=== PATIENT | female | born 1965 | race Caucasian/White ===

== ENCOUNTER 2023-11-04 00:40 | Outpatient (RCR) | payer MEDICAID, SELFPAY ==
[2023-10-21] MEDS: Heparin 500 UNITS/5 ML SYRINGE IV (11:46)
[2023-10-21] MEDS: Normal Saline Flush 10 ML SYR IVP (11:46)
[2023-10-21 12:16] LABS: Abs Immature Grans 0.02 10^3/uL (0.0-0.06); Absolute Basophil Count 0.04 10^3/uL (0.0-0.2); Absolute Eosinophil Count 0.07 10^3/uL (0.0-0.7); Absolute Monocyte Count 0.32 10^3/uL (0.1-0.8); Absolute Neutrophil Count 4.69 10^3/uL (1.2-6.7); Basophils % 0.7; Eosinophils % 1.2; HCT 34.5 % (36.0-46.0); HGB 11.2 g/dL (11.2-15.7); Immature Grans % 0.3; Lymphocytes % 13.5; MCH 29.2 pg (27.0-33.0); MCHC 32.5 % (32.0-36.0); MCV 90 fL (80-95); MPV 10.5 fL (8.0-11.0); Monocytes % 5.4; Neutrophils % 78.9; Platelet Count 193 10^3/uL (130-400); RBC 3.83 10^6/uL (3.93-5.22); RDW 12.3 % (11.7-14.6); RDW-SD 40.1 fL; WBC 5.94 10^3/uL (4.4-10.8)
[2023-10-21 12:31] LABS: ALT 27 U/L (14-59); AST 17 U/L (15-37); Albumin 3.3 g/dL (3.4-5.0); Alkaline Phosphatase 72 U/L (46-116); Anion Gap 7.6 mmol/L (3-11); BUN 21 mg/dL (7-18); Bilirubin, Total 0.5 mg/dL (0.2-1.0); CO2 26.4 mmol/L (21.0-32.0); CREATININE 1.1 mg/dL (0.55-1.02); Calcium 8.2 mg/dL (8.5-10.1); Chloride 103 mmol/L (98-107); Estimated GFR 57.52 (mL/min/1.73m2); Glucose 199 mg/dL (74-106); Potassium 4.2 mmol/L (3.5-5.1); Sodium 137 mmol/L (136-145)
[2023-10-28] MEDS: Normal Saline Flush 10 ML SYR IVP (11:59)
[2023-10-28] MEDS: Heparin 500 UNITS/5 ML SYRINGE IV (11:59)
[2023-10-28 12:02] LABS: Abs Immature Grans 0.02 10^3/uL (0.0-0.06); Absolute Basophil Count 0.02 10^3/uL (0.0-0.2); Absolute Eosinophil Count 0.06 10^3/uL (0.0-0.7); Absolute Lymphocyte Count 0.37 10^3/uL (1.2-3.4); Absolute Neutrophil Count 2.12 10^3/uL (1.2-6.7); Basophils % 0.7; Eosinophils % 2.2; HCT 30.7 % (36.0-46.0); HGB 10.1 g/dL (11.2-15.7); Immature Grans % 0.7; Lymphocytes % 13.3; MCH 29.3 pg (27.0-33.0); MCHC 32.9 % (32.0-36.0); MCV 89 fL (80-95); MPV 9.6 fL (8.0-11.0); Monocytes % 7.2; Neutrophils % 75.9; Platelet Count 140 10^3/uL (130-400); RBC 3.45 10^6/uL (3.93-5.22); RDW 11.9 % (11.7-14.6); RDW-SD 37.7 fL; WBC 2.79 10^3/uL (4.4-10.8)
[2023-10-28 12:16] LABS: ALT 19 U/L (14-59); AST 12 U/L (15-37); Albumin 3.1 g/dL (3.4-5.0); Alkaline Phosphatase 69 U/L (46-116); Anion Gap 7.4 mmol/L (3-11); BUN 13 mg/dL (7-18); Bilirubin, Total 0.4 mg/dL (0.2-1.0); CO2 27.6 mmol/L (21.0-32.0); CREATININE 0.8 mg/dL (0.55-1.02); Calcium 8.1 mg/dL (8.5-10.1); Chloride 104 mmol/L (98-107); Glucose 185 mg/dL (74-106); Potassium 3.9 mmol/L (3.5-5.1); Sodium 139 mmol/L (136-145); Total Protein 6.6 g/dL (6.4-8.2)
[2023-11-04] MEDS: Heparin 500 UNITS/5 ML SYRINGE IV (11:37)
[2023-11-04] MEDS: Normal Saline Flush 10 ML SYR IVP (11:37)
[2023-11-04 11:44] LABS: Abs Immature Grans 0.01 10^3/uL (0.0-0.06); Absolute Basophil Count 0.01 10^3/uL (0.0-0.2); Absolute Eosinophil Count 0.07 10^3/uL (0.0-0.7); Absolute Lymphocyte Count 0.24 10^3/uL (1.2-3.4); Absolute Monocyte Count 0.33 10^3/uL (0.1-0.8); Absolute Neutrophil Count 1.56 10^3/uL (1.2-6.7); Basophils % 0.5; Eosinophils % 3.2; HCT 31.5 % (36.0-46.0); HGB 10.6 g/dL (11.2-15.7); Immature Grans % 0.5; Lymphocytes % 10.8; MCH 30.2 pg (27.0-33.0); MCHC 33.7 % (32.0-36.0); MCV 90 fL (80-95); MPV 9.5 fL (8.0-11.0); Monocytes % 14.9; Neutrophils % 70.1; RBC 3.51 10^6/uL (3.93-5.22); RDW 12.5 % (11.7-14.6); RDW-SD 37.4 fL; WBC 2.22 10^3/uL (4.4-10.8)
[2023-11-04 11:49] LABS: ALT 21 U/L (14-59); AST 14 U/L (15-37); Albumin 3.2 g/dL (3.4-5.0); Alkaline Phosphatase 83 U/L (46-116); Anion Gap 8.9 mmol/L (3-11); BUN 20 mg/dL (7-18); Bilirubin, Total 0.4 mg/dL (0.2-1.0); CO2 28.1 mmol/L (21.0-32.0); CREATININE 1.1 mg/dL (0.55-1.02); Calcium 8.4 mg/dL (8.5-10.1); Chloride 101 mmol/L (98-107); Estimated GFR 57.52 (mL/min/1.73m2); Glucose 282 mg/dL (74-106); Potassium 3.7 mmol/L (3.5-5.1); Sodium 138 mmol/L (136-145); Total Protein 6.9 g/dL (6.4-8.2)
[2023-11-04 12:15] LABS: Platelet Count 98 10^3/uL (130-400)
== END 2023-11-07 23:59 | disposition home or self-care (01) ==
LOC: INF 00:40
PROVIDERS: PCP Family Medicine; Visit Provider Internal Medicine Hematology & Oncology
DX: C21.0 Malignant neoplasm of anus, unspecified (principal); Z45.2 Encounter for adjustment and management of vascular access device
CPT/HCPCS: 36591; 80053; 85025

== ENCOUNTER → 2023-11-19 12:57 | Outpatient (CLI) | payer MEDICAID, SELFPAY ==
--- NOTE | 2023-11-19 | DI.US_ITS ---
Exam(s) US EXTREMITY VENOUS BI EXAM: US EXTREMITY VENOUS BI CLINICAL HISTORY: Bilateral lower extremity edema, undergoing treatment for anal ca. TECHNIQUE: Bilateral lower extremity venous ultrasound performed using grayscale, color-flow, and sp ectral Doppler analysis. COMPARISON: No exams were available for comparison FINDINGS: The right common femoral, femoral and popliteal veins demonstrate normal compressibility, augmentatio n, and color Doppler. The posterior tibial veins are patent. The saphenofemoral junction is unremark able. There is no evidence of a Elizabeth's cyst. The soft tissues are unremarkable. The left common femoral, femoral and popliteal veins demonstrate normal compressibility, augmentation , and color Doppler. The posterior tibial and peroneal veins are patent. The saphenofemoral junction is unremarkable. There is no evidence of a Elizabeth's cyst. The soft tissues are unremarkable. IMPRESSION: 1. No evidence of a right lower extremity DVT. 2. No evidence of a left lower extremity DVT. DATA REPOSITORY:
== END ==
PROVIDERS: PCP Family Medicine; Visit Provider Internal Medicine Hematology & Oncology
DX: C21.0 Malignant neoplasm of anus, unspecified (principal); R22.43 Localized swelling, mass and lump, lower limb, bilateral
CPT/HCPCS: 93970

== ENCOUNTER 2023-12-03 01:12 | Outpatient (RCR) | payer MEDICAID, SELFPAY ==
[2023-11-11] MEDS: Normal Saline Flush 10 ML SYR IVP (11:41)
[2023-11-11] MEDS: Heparin 500 UNITS/5 ML SYRINGE IV (11:43)
[2023-11-11 12:14] LABS: Abs Immature Grans 0.03 10^3/uL (0.0-0.06); Absolute Basophil Count 0.04 10^3/uL (0.0-0.2); Absolute Eosinophil Count 0.06 10^3/uL (0.0-0.7); Absolute Lymphocyte Count 0.25 10^3/uL (1.2-3.4); Absolute Monocyte Count 0.41 10^3/uL (0.1-0.8); Absolute Neutrophil Count 3.03 10^3/uL (1.2-6.7); Eosinophils % 1.6; HCT 30.4 % (36.0-46.0); HGB 10.1 g/dL (11.2-15.7); Immature Grans % 0.8; Lymphocytes % 6.5; MCH 30.2 pg (27.0-33.0); MCHC 33.2 % (32.0-36.0); MCV 91 fL (80-95); MPV 10.1 fL (8.0-11.0); Monocytes % 10.7; Neutrophils % 79.4; Platelet Count 111 10^3/uL (130-400); RBC 3.34 10^6/uL (3.93-5.22); RDW 13.8 % (11.7-14.6); RDW-SD 38.8 fL; WBC 3.82 10^3/uL (4.4-10.8)
[2023-11-11 12:37] LABS: ALT 22 U/L (14-59); AST 15 U/L (15-37); Albumin 3.2 g/dL (3.4-5.0); Alkaline Phosphatase 76 U/L (46-116); Anion Gap 8.6 mmol/L (3-11); BUN 20 mg/dL (7-18); Bilirubin, Total 0.4 mg/dL (0.2-1.0); CO2 28.4 mmol/L (21.0-32.0); CREATININE 1.2 mg/dL (0.55-1.02); Calcium 8.3 mg/dL (8.5-10.1); Chloride 102 mmol/L (98-107); Estimated GFR 51.82 (mL/min/1.73m2); Glucose 162 mg/dL (74-106); Potassium 3.7 mmol/L (3.5-5.1); Sodium 139 mmol/L (136-145); Total Protein 6.8 g/dL (6.4-8.2)
[2023-11-18] MEDS: Normal Saline Flush 10 ML SYR IVP (11:56)
[2023-11-18 12:03] LABS: Abs Immature Grans 0.01 10^3/uL (0.0-0.06); Absolute Basophil Count 0.03 10^3/uL (0.0-0.2); Absolute Eosinophil Count 0.15 10^3/uL (0.0-0.7); Absolute Lymphocyte Count 0.23 10^3/uL (1.2-3.4); Absolute Monocyte Count 0.37 10^3/uL (0.1-0.8); Absolute Neutrophil Count 3.88 10^3/uL (1.2-6.7); Basophils % 0.6; Eosinophils % 3.2; HCT 28.8 % (36.0-46.0); HGB 9.8 g/dL (11.2-15.7); Immature Grans % 0.2; Lymphocytes % 4.9; MCV 91 fL (80-95); MPV 9.1 fL (8.0-11.0); Monocytes % 7.9; Neutrophils % 83.2; Platelet Count 113 10^3/uL (130-400); RBC 3.16 10^6/uL (3.93-5.22); RDW 14.8 % (11.7-14.6); RDW-SD 39.8 fL; WBC 4.67 10^3/uL (4.4-10.8)
[2023-11-18 12:19] LABS: ALT 23 U/L (14-59); AST 18 U/L (15-37); Albumin 3.2 g/dL (3.4-5.0); Alkaline Phosphatase 63 U/L (46-116); Anion Gap 7.1 mmol/L (3-11); BUN 13 mg/dL (7-18); Bilirubin, Total 0.5 mg/dL (0.2-1.0); CO2 27.9 mmol/L (21.0-32.0); Calcium 8.5 mg/dL (8.5-10.1); Chloride 104 mmol/L (98-107); Estimated GFR 64.49 (mL/min/1.73m2); Glucose 160 mg/dL (74-106); Potassium 3.7 mmol/L (3.5-5.1); Sodium 139 mmol/L (136-145); Total Protein 6.7 g/dL (6.4-8.2)
[2023-11-25] MEDS: Normal Saline Flush 10 ML SYR IVP (12:29)
[2023-11-25 13:00] LABS: Abs Immature Grans 0.02 10^3/uL (0.0-0.06); Absolute Basophil Count 0.02 10^3/uL (0.0-0.2); Absolute Lymphocyte Count 0.15 10^3/uL (1.2-3.4); Absolute Monocyte Count 0.26 10^3/uL (0.1-0.8); Absolute Neutrophil Count 2.54 10^3/uL (1.2-6.7); Basophils % 0.6; Eosinophils % 3.2; HCT 25.8 % (36.0-46.0); Immature Grans % 0.6; Lymphocytes % 4.9; MCH 32.1 pg (27.0-33.0); MCHC 34.9 % (32.0-36.0); MCV 92 fL (80-95); MPV 9.2 fL (8.0-11.0); Monocytes % 8.4; Neutrophils % 82.3; Platelet Count 103 10^3/uL (130-400); RDW 15.8 % (11.7-14.6); RDW-SD 46.1 fL; WBC 3.09 10^3/uL (4.4-10.8)
[2023-11-25 13:13] LABS: ALT 24 U/L (14-59); AST 15 U/L (15-37); Albumin 3.2 g/dL (3.4-5.0); Alkaline Phosphatase 62 U/L (46-116); Anion Gap 6.3 mmol/L (3-11); BUN 13 mg/dL (7-18); Bilirubin, Total 0.5 mg/dL (0.2-1.0); CO2 26.7 mmol/L (21.0-32.0); Calcium 8.1 mg/dL (8.5-10.1); Chloride 105 mmol/L (98-107); Estimated GFR 64.49 (mL/min/1.73m2); Glucose 193 mg/dL (74-106); Potassium 3.4 mmol/L (3.5-5.1); Sodium 138 mmol/L (136-145); Total Protein 6.6 g/dL (6.4-8.2)
[2023-12-03] MEDS: Normal Saline Flush 10 ML SYR IVP (13:03)
[2023-12-03 13:31] LABS: Abs Immature Grans 0.03 10^3/uL (0.0-0.06); Absolute Basophil Count 0.01 10^3/uL (0.0-0.2); Absolute Eosinophil Count 0.07 10^3/uL (0.0-0.7); Absolute Lymphocyte Count 0.14 10^3/uL (1.2-3.4); Absolute Monocyte Count 0.44 10^3/uL (0.1-0.8); Basophils % 0.5; Eosinophils % 3.2; HCT 24.3 % (36.0-46.0); HGB 8.2 g/dL (11.2-15.7); Immature Grans % 1.4; Lymphocytes % 6.4; MCH 31.9 pg (27.0-33.0); MCHC 33.7 % (32.0-36.0); MCV 95 fL (80-95); MPV 10.1 fL (8.0-11.0); Monocytes % 20.1; Neutrophils % 68.4; Platelet Count 113 10^3/uL (130-400); RBC 2.57 10^6/uL (3.93-5.22); RDW-SD 54.4 fL; WBC 2.19 10^3/uL (4.4-10.8)
[2023-12-03 13:48] LABS: ALT 20 U/L (14-59); AST 18 U/L (15-37); Albumin 3.1 g/dL (3.4-5.0); Alkaline Phosphatase 55 U/L (46-116); Anion Gap 8.4 mmol/L (3-11); BUN 17 mg/dL (7-18); Bilirubin, Total 0.3 mg/dL (0.2-1.0); CO2 24.6 mmol/L (21.0-32.0); CREATININE 1.2 mg/dL (0.55-1.02); Calcium 7.9 mg/dL (8.5-10.1); Chloride 105 mmol/L (98-107); Estimated GFR 51.82 (mL/min/1.73m2); Glucose 131 mg/dL (74-106); Potassium 3.8 mmol/L (3.5-5.1); Sodium 138 mmol/L (136-145); Total Protein 6.5 g/dL (6.4-8.2)
== END 2023-12-08 23:59 | disposition home or self-care (01) ==
LOC: INF 01:12
PROVIDERS: PCP Family Medicine; Visit Provider Internal Medicine Hematology & Oncology
DX: C21.0 Malignant neoplasm of anus, unspecified (principal); Z45.2 Encounter for adjustment and management of vascular access device
CPT/HCPCS: 36591; 80053; 85025; J1642